=== PATIENT | male | born 1965 | race Caucasian/White ===

== ENCOUNTER 2016-05-09 07:06 | Emergency (ER) | payer MEDICAID ==
[2016-05-09 07:11] VITALS: RESP 16
--- NOTE | 2016-05-09 07:11 | EDPHY ---
H & P Smoking Status: Current every day smoker Time Seen by Provider: 05/09/16 07:11 HPI/ROS: CHIEF COMPLAINT: Mental health hold HISTORY OF PRESENT ILLNESS: 50-year-old man history of schizoaffective disorder arrives on a mental health hold for delusions and increasing voices in his head as well as expressing aggressive behavior toward his sister. Mother called police and police arrived and sister is aware of the patient's statements. He has been increasingly delusional with voices in his head and aggressive without taking medications. Patient is tangential and rambling and thinks he has been poisoned and is only intermittently cooperative with the interview. REVIEW OF SYSTEMS: Cardiac: no chest pain or syncope Pulmonary: no cough or SOB Abdomen: no vomiting, diarrhea, abdominal pain Musculoskeletal: no back pain Skin: no rash Neuro: no headache Constitutional: no fever A comprehensive 10 point review of systems is otherwise negative aside from elements mentioned in the history of present illness, but further history and ROS is unobtainable on arrival because the patient's degree of cooperation with the interview. PAST MEDICAL HISTORY: Schizoaffective disorder per Dr. Graciela Phillips discharge summary 05/2012. Social history: Tobacco and marijuana, denies alcohol. General Appearance: Alert and conversant, cooperative. Eyes: No scleral icterus. Extraocular motion intact, no proptosis, pupils 3 mm reactive. ENT, Mouth: Normal mucous membranes. Normal pharynx, no external head or facial trauma or swelling. Respiratory: Normal respiratory effort, breath sounds equal, lungs are clear to auscultation. Cardiovascular: Regular rate and rhythm. Gastrointestinal: Abdomen is soft and non tender. Neurological: Alert and intermittently cooperative. Normally conversant. Face symmetric, normal movement and sensation in all extremities. Skin: Warm and dry, no rashes. Musculoskeletal: No peripheral edema and no joint swelling. Psychiatric: Patient is delusional talking about being poisoned at a cafe an [place] by somebody putting something in his left eye without him knowing. He also says that he was "hit in the forehead and shot it up to the yi through a [place] pickup" this morning, rambling speech, tangential. Emergency Department course/MDM: Arrives on a mental health hold. 800: Patient uncooperative, sedated with haloperidol 10 mg and Ativan 2 mg for ability to perform an appropriate medical screening examination. At this point the patient is psychotic and I do not feel has capacity to make decisions regarding his medical care. 1305: Patient had mental health evaluation. Plan for inpatient psychiatric hospitalization. 1505: Patient is quiet and cooperative now. He has some bruising over his right eye but no crepitus or bony tenderness. Extraocular motion is intact. Pupils are normal. No hyphema. Signed out to Dr. Herbert at this time with inpatient psychiatric placement pending. (Karthik Lee) Constitutional: Initial Vital Signs Temperature (C) 37.6 C 05/09/16 07:08 Heart Rate 125 H 05/09/16 07:08 Respiratory Rate 16 05/09/16 07:08 Blood Pressure 128/104 H 05/09/16 07:08 O2 Sat (%) 93 05/09/16 07:08 O2 Delivery Mode Room Air Allergies/Adverse Reactions: No Known Allergies Allergy (Verified 04/19/12 22:03) Home Medications: Medication Instructions Recorded NK [No Known Home Meds] 05/09/16 Medical Decision Making ED Course/Re-evaluation: 1500: The patient is signed out to me at change of shift by Dr. Karthik Lee. I went personally evaluated the patient. He is stable at this time. No new complaints. He is awaiting placement. 1600: EMTALA was completed. The patient will be transferred. (Lindsey Herbert) Differential Diagnosis: Differential considered including but not limited to bipolar disorder, schizoaffective disorder, drug or alcohol ingestion, metabolic. (Karthik Lee) - Data Points Laboratory Results: Laboratory Results 05/09/16 08:20 05/09/16 08:20 05/09/16 05/09/16 05/09/16 08:40 08:20 08:20 WBC 14.80 10^3/uL H 10^3/uL (3.80-9.50) RBC 5.90 10^6/uL 10^6/uL (4.40-6.38) Hgb 18.6 g/dL H g/dL (13.7-17.5) Hct 52.8 % H % (40.0-51.0) MCV 89.5 fL fL (81.5-99.8) MCH 31.5 pg pg (27.9-34.1) MCHC 35.2 g/dL g/dL (32.4-36.7) RDW 12.0 % % (11.5-15.2) Plt Count 337 10^3/uL 10^3/uL (150-400) MPV 10.2 fL fL (8.7-11.7) Neut % (Auto) 66.0 % % (39.3-74.2) Lymph % (Auto) 21.9 % % (15.0-45.0) [place] % (Auto) 10.1 % % (4.5-13.0) Eos % (Auto) 0.5 % L % (0.6-7.6) Baso % (Auto) 0.6 % % (0.3-1.7) Nucleat RBC Rel Count 0.0 % % (0.0-0.2) Absolute Neuts (auto) 9.77 10^3/uL H 10^3/uL (1.70-6.50) Absolute Lymphs (auto) 3.24 10^3/uL H 10^3/uL (1.00-3.00) Absolute Monos (auto) 1.49 10^3/uL H 10^3/uL (0.30-0.80) Absolute Eos (auto) 0.08 10^3/uL 10^3/uL (0.03-0.40) Absolute Basos (auto) 0.09 10^3/uL 10^3/uL (0.02-0.10) Absolute Nucleated RBC 0.00 10^3/uL 10^3/uL (0-0.01) Immature Gran % 0.9 % % (0.0-1.1) Immature Gran # 0.13 10^3/uL H 10^3/uL (0.00-0.10) Sodium 140 mEq/L mEq/L (134-144) Potassium 4.3 mEq/L mEq/L (3.5-5.2) Chloride 102 mEq/L mEq/L (97-110) Carbon Dioxide 18 mEq/l L mEq/l (22-31) Anion Gap 20 mEq/L H mEq/L (8-16) BUN 18 mg/dL mg/dL (7-23) Creatinine 1.2 mg/dL mg/dL (0.7-1.3) Estimated GFR > 60 Glucose 154 mg/dL H mg/dL (70-100) Calcium 10.8 mg/dL H mg/dL (8.5-10.4) Phosphorus 3.8 mg/dL mg/dL (2.5-4.5) Urine Opiates Screen NEGATIVE (NEGATIVE) Urine Barbiturates NEGATIVE (NEGATIVE) Ur Phencyclidine Scrn NEGATIVE (NEGATIVE) Ur Amphetamine Screen NEGATIVE (NEGATIVE) U Benzodiazepines Scrn NEGATIVE (NEGATIVE) Urine Cocaine Screen NEGATIVE (NEGATIVE) U Marijuana (THC) Screen NON-NEGATIVE H (NEGATIVE) Ethyl Alcohol < 10 mg/dL mg/dL (0-10) Medications Given: Discontinued Medications Haloperidol Lactate (Haldol Injection) 10 mg IM EDNOW ONE Stop: 05/09/16 08:07 Last Admin: 05/09/16 08:23 Dose: 10 mg Lorazepam (Ativan Injection) 2 mg IM EDNOW ONE Stop: 05/09/16 08:07 Last Admin: 05/09/16 08:23 Dose: 2 mg Departure - Departure Disposition: Other Psych, Not [place] Clinical Impression: Schizoaffective disorder Qualifiers: Schizoaffective disorder type: unspecified Qualified Code(s): F25.9 - Schizoaffective disorder, unspecified Condition: Fair Referrals: Patient,NotPresent [Primary Care Provider] - As per Instructions
[2016-05-09] MEDS ORDERED: HALOPERIDOL LACT 5 MG/ML INJ IM ONE (08:06)
[2016-05-09] MEDS ORDERED: LORazepam 2 MG/ML INJ IM ONE (08:06)
[2016-05-09 08:30] LABS: % IMMATURE GRANULYOCYTES 0.9 % (0.0-1.1); ABSOLUTE IMMATURE GRANULOCYTES 0.13 10^3/uL (0.00-0.10); ADD DIFF? NO; ADD MORPH? NO; ADD SCAN? NO; ATYPICAL LYMPHOCYTE FLAG 0 (0-99); FRAGMENT RBC FLAG 0 (0-99); HEMATOCRIT 52.8 % (40.0-51.0); HEMOGLOBIN 18.6 g/dL (13.7-17.5); LEFT SHIFT FLG 0 (0-99); LIPEMIA HEMOLYSIS FLAG 90 (0-99); MEAN CELL HEMOGLOBIN 31.5 pg (27.9-34.1); MEAN CELL HEMOGLOBIN CONCENTR. 35.2 g/dL (32.4-36.7); MEAN CELL VOLUME 89.5 fL (81.5-99.8); MEAN PLATELET VOLUME 10.2 fL (8.7-11.7); PLATELET CLUMPS FLAG 10 (0-99); PLATELET COUNT 337 10^3/uL (150-400)
[2016-05-09 08:49] LABS: ANION GAP 20 mEq/L (8-16); CALCIUM 10.8 mg/dL (8.5-10.4); CARBON DIOXIDE 18 mEq/l (22-31); CHLORIDE 102 mEq/L (97-110); CREATININE 1.2 mg/dL (0.7-1.3); ETHANOL SERUM < 10 mg/dL (0-10); GLOMERULAR FILTRATION RATE > 60; GLUCOSE 154 mg/dL (70-100); POTASSIUM 4.3 mEq/L (3.5-5.2); SODIUM 140 mEq/L (134-144)
[2016-05-09 18:17] VITALS: BP 117/88; PULSE 93; TEMP 98.1; O2SAT 95
== END 2016-05-09 19:37 ==
LOC: EDUNIT#
DX: F25.9 Schizoaffective disorder, unspecified (principal); F17.200 Nicotine dependence, unspecified, uncomplicated
CPT/HCPCS: 80305; G0480

== ENCOUNTER 2016-07-26 06:37 | Inpatient (IN) | payer MEDICAID ==
--- NOTE | 2016-07-26 06:56 | EDPHY ---
H & P Stated Complaint: M1 Source: Patient, Police Exam Limitations: Clinical condition - Personal History Current Tetanus/Diphtheria Vaccine: Unsure Current Tetanus Diphtheria and Acellular Pertussis (TDAP): Unsure - Medical/Surgical History Hx Asthma: No Hx Chronic Respiratory Disease: No Hx Diabetes: No Hx Cardiac Disease: No Hx Renal Disease: No Hx Cirrhosis: No Hx Alcoholism: No Hx HIV/AIDS: No Hx Splenectomy or Spleen Trauma: No Other PMH: Schizoaffective disorder - Family History Significant Family History: No pertinent family hx - Social History Smoking Status: Current every day smoker HPI/ROS: CHIEF COMPLAINT: M1, Delusions, auditory hallucinations HISTORY OF PRESENT ILLNESS: The patient is a 51 y/o male with schizoaffective disorder arriving via [facility] on a M1 hold for grave disability and delusions. According to our records he has required psychiatric admissions annually for the last few years. Per [facility], his living situation is uncertain but his foster mother reports he does not take psychiatric medication. He is minimally cooperative during assessment and states , "I'm just trying to go to sleep." He tells me his mother brought him in and says, "mother if you could please save these babies for your estate sale." He endorses hearing voices but no visual hallucinations. He denies suicidal or homicidal ideation. He reports he does not use medication and has no medications prescribed. REVIEW OF SYSTEMS: A ten point review of systems was performed and is negative with the exception of the items mentioned in the HPI. He answers my questions intermittently and it is difficult to assess whether not his answers are accurate. (Marcy Sneed) - Medical/Surgical History PMH: Previous Medical history includes: 1. Schizoaffective Disorder 2. Bipolar I Disorder Review prior medical records for 05/09/16 for M1. (Marcy Sneed) - Social History Additional Social History: Uncertain living situation. Daily smoker. Denies alcohol use. (Marcy Sneed) - Physical Exam Exam: General Appearance: Alert. Vital signs reviewed. Heart rate 111 at triage. Eyes: Pupils equal and round, no conjunctival injection, no discharge. Anicteric. ENT, Mouth: Mucous membranes are slightly dry, no oropharyngeal erythema or edema. Neck: No lymphadenopathy, supple. Respiratory: Lungs are clear to auscultation; no wheezes, rales, or rhonchi. Cardiovascular: Tachycardic; no murmur, rub, or gallop. Gastrointestinal: Abdomen is soft and nontender, no masses or organomegaly, bowel sounds normal. Skin: Warm and dry, no rashes on exposed skin, Mayer and sunburned. Back: Nontender to palpation over the thoracolumbar spine. No CVAT. Extremities: No lower extremity edema, no calf tenderness or swelling. Neurological: Alert and disoriented. Moving all four extremities easily and equally. BRIANA. EOMI. Facial expression symmetric. Tongue midline. Psychiatric: Appears to have auditory hallucinations. Disorganized delusional speech. (Marcy Sneed) Constitutional: Initial Vital Signs Temperature (C) 37.0 C 07/26/16 06:44 Heart Rate 111 H 07/26/16 06:44 Respiratory Rate 16 07/26/16 06:44 Blood Pressure 156/81 H 07/26/16 06:44 O2 Sat (%) 95 07/26/16 06:44 O2 Delivery Mode Room Air Allergies/Adverse Reactions: No Known Allergies Allergy (Verified 07/26/16 06:43) Home Medications: Medication Instructions Recorded NK [No Known Home Meds] 05/09/16 Medical Decision Making ED Course/Re-evaluation: 1500: The patient is signed out to me at change of shift by Dr. Marcy Sneed. At the Time of transfer the patient is stable. He is awaiting placement. I reviewed the patient's laboratory studies. He was noted to have an elevated white count an anion gap. Because of this I repeated his CBC and chemistry. His repeat chemistry and CBC were improved. The patient was stable during his stay. 2300: The patient is signed out at change of shift to . (Lindsey Herbert) 2300 care assumed by me from Dr. Herbert pending placement. [address] Reid pending placement. No issues with this patient during my care overnight. (Anthony Espinosa) This is a 51 y/o male who presents on a M1 hold for grave disability and delusional patterns. He has a history of schizoaffective disorder and has required admissions previous to this. He is intermittently able to follow commands during exam. Speech is delusional. Plan for standard psychiatric labs and then mental health assessment. 1239: He was evaluated by mental health. They recommend in-patient psychiatric admission. Placement pending. 1500: He received Zyprexa while under my care. Patient transferred to Dr. Herbert at shift change. Placement pending. (Marcy Sneed) I assumed care of the patient at 0700 awaiting psychiatric placement. Update at 2:15 p.m.. The patient has been accepted for inpatient psychiatric admission by Dr. Carias to the inpatient psychiatric unit at [facility]. I have filled out the EMTALA transfer form. (Ray Reid) Differential Diagnosis: I considered a differential diagnosis that includes but is not limited to acute psychosis, auditory hallucinations, visual hallucinations, depression, suicidality, homicidality, carla, and effect of medication or illicit drugs. ( Marcy Sneed) - Data Points Laboratory Results: Laboratory Results 07/26/16 18:11 07/26/16 18:11 Medications Given: Discontinued Medications Sodium Chloride (Ns) 1,000 mls @ 0 mls/hr IV ONCE ONE PRN Reason: Wide Open Stop: 07/26/16 15:53 Last Admin: 07/26/16 18:31 Dose: 1,000 mls Olanzapine (Zyprexa Zydis) 10 mg PO EDNOW ONE Stop: 07/26/16 13:38 Last Admin: 07/26/16 13:46 Dose: 10 mg Departure - Departure Disposition: [facility] IP Clinical Impression: Hallucinations, Anxiety Schizo-affective psychosis Qualifiers: Schizoaffective disorder type: unspecified Qualified Code(s): F25.9 - Schizoaffective disorder, unspecified Condition: Good Referrals: Patient,NotPresent [Unknown] - As per Instructions Report Scribed for: Marcy Sneed Report Scribed by: Tae López Date of Report: 07/26/16 Time of Report: 07:36 Physician Review and Approval Statement: 07/26/16 06:56 Portions of this note were transcribed by the medical claims processor. I, Dr. Marcy Sneed, personally performed the history, physical exam, and medical decision- making; and confirmed the accuracy of the information in the transcribed note. ( Marcy Sneed)
[2016-07-26 07:27] LABS: % IMMATURE GRANULYOCYTES 0.7 % (0.0-1.1); ABSOLUTE IMMATURE GRANULOCYTES 0.12 10^3/uL (0.00-0.10); ADD DIFF? NO; ADD MORPH? NO; ADD SCAN? NO; ATYPICAL LYMPHOCYTE FLAG 0 (0-99); FRAGMENT RBC FLAG 0 (0-99); HEMATOCRIT 50.2 % (40.0-51.0); HEMOGLOBIN 17.4 g/dL (13.7-17.5); LEFT SHIFT FLG 0 (0-99); LIPEMIA HEMOLYSIS FLAG 90 (0-99); MEAN CELL HEMOGLOBIN 30.9 pg (27.9-34.1); MEAN CELL HEMOGLOBIN CONCENTR. 34.7 g/dL (32.4-36.7); MEAN CELL VOLUME 89.2 fL (81.5-99.8); MEAN PLATELET VOLUME 11.2 fL (8.7-11.7); PLATELET CLUMPS FLAG 20 (0-99); PLATELET COUNT 267 10^3/uL (150-400); RED BLOOD CELL COUNT 5.63 10^6/uL (4.40-6.38)
[2016-07-26 07:33] LABS: ANION GAP 18 mEq/L (8-16); CALCIUM 10.4 mg/dL (8.5-10.4); CARBON DIOXIDE 17 mEq/l (22-31); CHLORIDE 107 mEq/L (97-110); CREATININE 1.2 mg/dL (0.7-1.3); ETHANOL SERUM < 10 mg/dL (0-10); GLOMERULAR FILTRATION RATE > 60; GLUCOSE 113 mg/dL (70-100); POTASSIUM 4.2 mEq/L (3.5-5.2); SODIUM 142 mEq/L (134-144)
[2016-07-26] MEDS ORDERED: OLANZapine DISINTEGR 10 MG TAB ONE (13:16)
[2016-07-26] MEDS ORDERED: OLANZapine DISINTEGR 10 MG TAB PO ONE (13:37)
[2016-07-26] MEDS ORDERED: NS 1,000 ML IV ONE (15:52)
[2016-07-26 18:19] LABS: % IMMATURE GRANULYOCYTES 0.6 % (0.0-1.1); ABSOLUTE IMMATURE GRANULOCYTES 0.07 10^3/uL (0.00-0.10); ADD DIFF? NO; ADD MORPH? NO; ADD SCAN? NO; ATYPICAL LYMPHOCYTE FLAG 10 (0-99); FRAGMENT RBC FLAG 0 (0-99); HEMOGLOBIN 16.3 g/dL (13.7-17.5); LEFT SHIFT FLG 0 (0-99); LIPEMIA HEMOLYSIS FLAG 90 (0-99); MEAN CELL HEMOGLOBIN 30.8 pg (27.9-34.1); MEAN CELL HEMOGLOBIN CONCENTR. 35.4 g/dL (32.4-36.7); MEAN CELL VOLUME 86.8 fL (81.5-99.8); MEAN PLATELET VOLUME 10.3 fL (8.7-11.7); PLATELET CLUMPS FLAG 30 (0-99); PLATELET COUNT 222 10^3/uL (150-400)
[2016-07-26 18:35] LABS: ANION GAP 11 mEq/L (8-16); CALCIUM 9.5 mg/dL (8.5-10.4); CARBON DIOXIDE 23 mEq/l (22-31); CHLORIDE 103 mEq/L (97-110); CREATININE 0.9 mg/dL (0.7-1.3); GLOMERULAR FILTRATION RATE > 60; GLUCOSE 104 mg/dL (70-100); POTASSIUM 3.8 mEq/L (3.5-5.2); SODIUM 137 mEq/L (134-144)
[2016-07-27] MEDS ORDERED: LORazepam 0.5 MG TAB PO PRN (15:34)
[2016-07-27] MEDS ORDERED: NICOTINE POLACRILEX 2 MG GUM B PRN (15:34)
[2016-07-27] MEDS ORDERED: OLANZapine DISINTEGR 10 MG TAB PO PRN (15:34)
[2016-07-27] MEDS ORDERED: MAGNESIUM HYDROXIDE 30 ML UDCUP PO PRN (15:34)
[2016-07-27] MEDS ORDERED: MAG HYDROX/AL HYDROX/SIMETH 30 ML UDCUP PO PRN (15:34)
[2016-07-27] MEDS ORDERED: ACETAMINOPHEN 325 MG TAB PO PRN (15:34)
--- NOTE | 2016-07-28 16:22 | BAPA ---
[f rep st] ADMISSION PSYCHIATRIC ASSESSMENT DATE OF SERVICE: 07/28/2016 CHIEF COMPLAINT: "I'm not going to talk to you. I don't trust you." HISTORY OF PRESENT ILLNESS: The patient is a 51-year-old male with a history of paranoid schizophrenia. He presented to the hospital with police after having been apprehended in the commun ity acting disorganized and a threatening manner. He was barefoot, standing in a public area, yelli ng at a parked car. He had caused a disturbance and people were afraid and the police were called. Today, I attempted to discuss this with him and he refuses to talk with me. 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 He was threatening and hostile, stating "I will knock you out." After only 10 minutes or s o, he abruptly terminated the interview without having given any information other than a rather pro tracted tirade of profanity. I have no other additional information at this time except that he olga arently had been living with his mother and left that home over 2 months ago and has been homeless s carlos a that time. PAST PSYCHIATRIC HISTORY: Significant for numerous previous admissions. It is unclear exactly when his last admission was, though there are lab orders from [facility] in July of 2013, August, and August of 2015. He was a patient here in April 2012 and October of 2011. He was previousl y a patient at [facility], but I was informed this morning by the liaison that h is case has been closed due to noncompliance. ALLERGIES: No known medical allergies. CURRENT MEDICATIONS: None. PAST MEDICAL HISTORY: Largely unknown, though no acute or chronic medical illnesses are listed in h is previous evaluations or his ER evaluation from yesterday. SOCIAL HISTORY: Patient is currently homeless. The source of any support he has is unknown to me. His mother lives locally and he used to live with her, though the specifics of that are also known to me. The patient has a history of substance use, primarily marijuana and alcohol, though the exte nt of this is unknown. His urine drug screen on admission was positive for marijuana. FAMILY HISTORY: Unknown. ADMISSION LABORATORY: CBC shows an elevated white count of 17.68, with a redraw at 11.34, otherwise normal. Serum chemistry showed no major abnormalities. Urine drug screen is positive for marijuan a. MENTAL STATUS EXAMINATION: Reveals a healthy-appearing, robust male. He is adequately gr oomed and appropriately dressed at this time, though was quite disheveled and malodorous when I inte racted with him yesterday evening on arrival. He is guarded, agitated, hostile, and paranoid. His affect is constricted and irritable. His mood is described as "really pissed off." His thought pro cess is disorganized. His thought content reveals grandiose and paranoid delusions. He denies any auditory, visual, or tactile hallucinations. He is alert and oriented to person, place, time, and s ituation, and his sensorium is clear. There is no evidence of intoxication or delirium. The patien t refuses to answer questions in regard to suicidality, and does make a violent threat toward myself . His insight and judgment appear to be very poor. IMPRESSION: 1. Schizophrenia, chronic paranoid type, with possible schizoaffective disorder, bipolar type, prosthodontist puja with acute exacerbation. 2. Cannabis use disorder, severity unknown. 3. Homelessness. 4. Chronic illness. 5. Exacerbation of chronic illness. The patient is a 51-year-old male with a history of chronic psychosis. He is admitted at this time due to agitation in the setting of having left his only support and being medication nonco mpliant. Past records indicate that he is always noncompliant when he is readmitted and requires co urt-ordered medications for stabilization. The patient will not discuss with me at this time, yaneth romero states he will not take "any of your chemicals." We will, therefore, admit to the [facility] inpatient unit on an M1 hold and convert to a short-term certification. We will petition the court for court-ordered medications as he is quite ill, threatening, and psychotic. He is clear ly gravely disabled as well. In the interim, we will manage with p.r.n. medications as necessary an d emergency medications if he becomes more aggressive. ESTIMATED LENGTH OF STAY: 14 days. /[id number]/MODL
[2016-07-29 01:12] VITALS: O2SAT 95
--- NOTE | 2016-07-29 02:08 | BCON ---
[f rep ] BEHAVIORAL HEALTH CONSULTATION INTERNAL MEDICINE CONSULTATION DATE OF CONSULTATION: 07/28/2016 REFERRING PHYSICIAN: Dr. Carias REASON FOR REFERRAL: Medical clearance for inpatient behavioral health stay. HISTORY OF PRESENT ILLNESS: The patient was brought to the emergency department by police on an M1 hold. His mother, per the ED report, had called the police because he was outside screaming at 3 in the morning. In the emergency department, he tried to leave. He needed restraints. He was treated with haloperidol. He was evaluated by the mental health team and admitted for further psychiatric care. He currently is without any medical complaints. He reports that he is frustrated. PAST MEDICAL HISTORY: Schizoaffective disorder. He denies other medical history. PAST SURGICAL HISTORY: He denies surgeries. SOCIAL HISTORY: He had housing up to several months ago, and he is currently homeless. He is a tobacco smoker. He has a history of alcohol and drug use, and he had positive urine drug screen for marijuana. FAMILY HISTORY: Noncontributory. REVIEW OF SYSTEMS: He reports weight gain in recent years. He is not sure why. He denies nausea, vomiting, constipation, or diarrhea. He has a good appetite, and other than that, a 10-point review of systems was negative. PHYSICAL EXAMINATION: VITAL SIGNS: Blood pressure this afternoon is 145/81, heart rate is 91, respiratory rate is 16, oxygen saturation is 98% on room air, temperature is 36.6 degrees centigrade. His weight is 83.9 kg for a body mass index of 26.5. GENERAL: This is a well-nourished, well-developed, overweight- appearing man, cooperative, and in no acute distress. HEENT: Extraocular movements are intact. Mucous membranes are moist. Dentition is in fair condition. NECK: Supple. HEART: Regular rate and rhythm with no murmurs, rubs, or gallops. LUNGS: Clear to auscultation bilaterally. ABDOMEN: Soft, nontender, nondistended with normoactive bowel sounds. EXTREMITIES: There is no cyanosis, clubbing, or edema. NEUROLOGIC: He is alert and oriented x3. He appears distracted at times. Cranial nerves 2-12 are grossly intact. There is no focal weakness. Sensation is intact to light touch, and gait is within normal limits. LABORATORY DATA: Drawn in the emergency department initially showed leukocytosis with a white blood cell count of 17.68. There was no left shift. He also had an anion gap of 18 with a low carbon dioxide at 17. A slightly elevated but still normal creatinine of 1.2. His glucose was elevated at 113; unclear whether this was fasting. Subsequent to hydration, his white blood cell count had improved to 11.3, and his anion gap had resolved. Renal function and electrolytes at that point were normal, though his glucose was still elevated at 105. Toxicology screen in the serum was negative for ethyl alcohol. Toxicology screen in the urine was non-negative for marijuana and was otherwise negative for substances of abuse. ASSESSMENT AND RECOMMENDATIONS: 1. Mental health issues. Pending further evaluation and management per Psychiatry and the mental health team. 2. Weight gain. A 2 kg weight gain is documented in the medical record since his previous encounter in April. Consider avoiding psychiatric medications which might cause further weight gain; however, psychosocial stabilization is first priority at present. 3. Anion gap of unclear etiology. It has resolved. As he also had a slightly elevated creatinine, it is conceivable that he has had reduced oral intake over the last several days and he might have had a low level ketosis. 4. Tobacco dependence syndrome. He was encouraged to stop smoking. 5. Elevated blood pressure. Advised monitoring. If it remains elevated, consider initiation of antihypertensives versus referral to primary care. I see no medical contraindications to the patient's continued stay in the inpatient behavioral health unit or to any psychiatric medications or procedures. Thank you very much for including me in the care of the patient, and please do not hesitate to contact me or the hospitalist service should there be need for further medical evaluation. /[id number]/MODL MTDD
[2016-07-29 11:45] VITALS: BP 143/83; PULSE 88; RESP 16; TEMP 98.4
--- NOTE | 2016-07-29 12:18 | BDS ---
[f rep st] BEHAVIORAL HEALTH DISCHARGE SUMMARY CHIEF COMPLAINT: "I'm here illegally, and I'm not taking her chemicals." HISTORY OF PRESENT ILLNESS: Patient is a 51-year-old male with longstanding history of sc hizoaffective disorder. He apparently had been off his medications for at least 2 months after movi ng out of his mother's home and being homeless. He was found in a public area causing a disturbance and was aggressive and threatening toward others. He was placed on an M1 hold and brought to the [facility]ital where he was admitted for further evaluation. A full description of the events preceding ad mission can be found in his admission history dated 07/28/2016. ADMITTING DIAGNOSES: 1. Schizophrenia, chronic paranoid type with acute exacerbation. 2. Possible schizoaffective disorder, bipolar type, chronic with acute exacerbation. 3. Cannabis use disorder, severity unknown. 4. Homelessness. 5. Chronic illness. 6. Exacerbation of chronic illness. ADMITTING PHYSICAL EXAMINATION: Performed by Dr. Stephen Drew reveals some weight gain and eleva juan blood pressure. LABORATORY EVALUATION: Reveals an anion gap. ADMISSION LABORATORY: CBC showed a white count initially elevated at 17.68. Did recheck, decreased to 11.34, otherwise normal. Serum chemistries showed no significant abnormalities. Urine drug scr een was positive for marijuana. Alcohol was less than detectable. HOSPITAL COURSE: The patient was admitted to the [facility] inpatient unit on an M1 h old. He was guarded and hostile but in reasonable behavioral control while in the emergency departm ent. When he arrived on the unit, he was gave a sparse history to the admitting RN, and then I met with him. At that time, he stated he would only meet with me in the hallway, because he did not juan st me. He states that I worked with him about 5 years ago in a different hospital and that I in [facility] offended him. He further stated that he was going to physically harm me, and that he was going to take any of "your chemicals." He abruptly terminated the initial interview. The staff had better luck interacting with the patient. They were able to evaluate his needs, thoug h he continued to refuse medications. He slept only 3 hours. The 1st night, and continued to refus e medicines throughout his stay. On the day of discharge, a bed came open at [facility] requested his transfer. I believe this is appropriate and facilitated it. CONDITION AT DISCHARGE: Stable. He was medically stable for transfer though was acutely psychiatri sudihr ill. DISCHARGE MEDICATIONS: None. DISCHARGE DIAGNOSES: Schizoaffective disorder, bipolar type, chronic with acute exacerbation, homel essness, lack of supports, chronic illness. DISPOSITION: Patient is to go by ambulance to [facility] with attendance. FOLLOWUP: Followup is with the team at [facility]. LEGAL STATUS: The patient was placed on a short-term certification at the expiration of his M1 hold . The short-term certification was transferred to [facility] at the time of his transfer. /[id number]/[id number]
== END 2016-07-29 19:30 | DRG 885 ==
LOC: BBEH 07-27 15:00
PROVIDERS: ADMIT Psychiatry & Neurology Psychiatry; ATTEND Psychiatry & Neurology Psychiatry
DX: F25.0 Schizoaffective disorder, bipolar type (principal); F12.90 Cannabis use, unspecified, uncomplicated; Z59.0 Homelessness; F17.200 Nicotine dependence, unspecified, uncomplicated
CPT/HCPCS: 80305; G0480